=== PATIENT | male | born 1985 | race Caucasian/White ===

== ENCOUNTER 2019-08-17 11:10 | Inpatient (IN) | payer OTHER ==
[2019-08-17] MEDS ORDERED: Ondansetron 4 MG/2 ML SDV IVPUSH ONE (11:34)
[2019-08-17] MEDS ORDERED: Sodium Chloride 0.9% 1,000 ML IV ONE (11:34)
[2019-08-17] MEDS ORDERED: HYDROmorphone 1 MG/ML Syringe IVPUSH ONE ×2 (11:38→12:26)
--- NOTE | 2019-08-17 12:21 | EDM.PDOC ---
<Isabela Jenkins - Last Filed: 08/17/19 13:12> ED HPI GENERAL MEDICAL PROBLEM - General Chief Complaint: Abdominal Pain Stated Complaint: ABDOMINAL PAIN AND BACK PAIN AFTER COLONOSCOPY Time Seen by Provider: 08/17/19 11:20 Source of Information: Reports: Patient History Limitations: Reports: No Limitations - History of Present Illness INITIAL COMMENTS - FREE TEXT/NARRATIVE: 33 year old male with complaints of severe lower abdominal pain that started this morning. Pt states that he had a colonoscopy yesterday and everything was normal. Reports woke this morning with severe low back pain bilaterally and lower abdominal pain below the umbilicus. Pt did have two diarrhea bowel movements this morning, but this did not decrease his abdominal pain. Pt is not passing gas. Voided once this morning, and said it was extremely painful to void. Unable to clarify if he fully emptied his bladder. Bilateral Abdomen Pain Score (Numeric/FACES): 10 - Related Data Allergies Allergy/AdvReac Type Severity Reaction Status Date / Time No Known Allergies Allergy Verified 08/17/19 11:20 Home Meds: Home Meds . [No Known Home Meds] 08/17/19 [History] Past Medical History HEENT History: Reports: None Cardiovascular History: Reports: None Respiratory History: Reports: None Gastrointestinal History: Reports: GI Bleed Genitourinary History: Reports: None Neurological History: Reports: None Psychiatric History: Reports: None Endocrine/Metabolic History: Reports: None Hematologic History: Reports: None Immunologic History: Reports: None Oncologic (Cancer) History: Reports: None Dermatologic History: Reports: None - Infectious Disease History Infectious Disease History: Reports: None - Past Surgical History Head Surgeries/Procedures: Reports: None GI Surgical History: Reports: Colonoscopy Musculoskeletal Surgical History: Reports: Other (See Below) Other Musculoskeletal Surgeries/Procedures:: Wrist surgery as a kid. Social & Family History - Tobacco Use Smoking Status *Q: Never Smoker - Caffeine Use Caffeine Use: Reports: Coffee, Energy Drinks - Recreational Drug Use Recreational Drug Use: No ED ROS GENERAL - Review of Systems Constitutional: Reports: Chills HEENT: Reports: No Symptoms Respiratory: Reports: No Symptoms Cardiovascular: Reports: No Symptoms Endocrine: Reports: No Symptoms GI/Abdominal: Reports: Abdominal Pain, Diarrhea, Nausea : Reports: Dysuria, Pain Musculoskeletal: Reports: No Symptoms Skin: Reports: No Symptoms Neurological: Reports: No Symptoms Psychiatric: Reports: Anxiety Hematologic/Lymphatic: Reports: No Symptoms Immunologic: Reports: No Symptoms ED EXAM, GI/ABD - Physical Exam Exam: See Below Exam Limited By: No Limitations General Appearance: Alert, WD/WN, Moderate Distress Ears: Normal External Exam Nose: Normal Inspection Throat/Mouth: Normal Inspection, Normal Lips Head: Atraumatic, Normocephalic Neck: Normal Inspection Respiratory/Chest: No Respiratory Distress, Lungs Clear, Normal Breath Sounds, No Accessory Muscle Use, Chest Non-Tender Cardiovascular: Normal Peripheral Pulses, Regular Rate, Rhythm, No Edema, No Murmur GI/Abdominal Exam: Guarding, Tender, Abnormal Bowel Sounds (Male) Exam: Deferred Rectal (Males) Exam: Deferred Back Exam: Normal Inspection Extremities: Normal Inspection, No Pedal Edema Neurological: Alert, Oriented, Normal Cognition Psychiatric: Anxious Skin Exam: Warm, Dry, Intact, Normal Color, No Rash Lymphatic: No Adenopathy Course - Vital Signs Last Recorded V/S: Last Vital Signs Temp 96.9 F 08/17/19 11:17 Pulse 100 08/17/19 11:17 Resp 18 08/17/19 11:17 BP 106/95 H 08/17/19 11:17 Pulse Ox 100 08/17/19 11:17 - Orders/Labs/Meds Orders: Active Orders 24 hr Category Date Time Status Abdomen Pelvis w Cont [CT] Stat Exams 08/17/19 11:34 Taken Piperacillin/Tazobactam [Piperacil-Tazobact] 4.5 gm Med 08/17/19 14:45 Active Sodium Chloride 0.9% [Normal Saline] 100 ml IV Q8H Medication Orders Piperacillin Sod/Tazobactam (Sod 4.5 gm/ Sodium Chloride) 100 mls @ 25 mls/hr IV Q8H [facility] Labs: Laboratory Tests 08/17/19 08/17/19 08/17/19 Range/Units 11:55 11:55 14:00 WBC 14.05 H (4.23-9.07) K/mm3 RBC 5.29 (4.63-6.08) M/mm3 Hgb 15.6 (13.7-17.5) gm/dl Hct 43.1 (40.1-51.0) % MCV 81.5 (79.0-92.2) fl MCH 29.5 (25.7-32.2) pg MCHC 36.2 H (32.2-35.5) g/dl RDW Std Deviation 36.4 (35.1-43.9) fL Plt Count 251 (163-337) K/mm3 MPV 8.6 L (9.4-12.3) fl Neutrophils % (Manual) 86 H (40-60) % Band Neutrophils % 4 (0-10) % Lymphocytes % (Manual) 5 L (20-40) % Atypical Lymphs % 0 % Monocytes % (Manual) 4 (2-10) % Eosinophils % (Manual) 1 (0.8-7.0) % Basophils % (Manual) 0 L (0.2-1.2) Platelet Estimate Adequate RBC Morph Comment Normal Sodium 137 (136-145) mEq/L Potassium 3.7 (3.5-5.1) mEq/L Chloride 102 (98-107) mEq/L Carbon Dioxide 24 (21-32) mEq/L Anion Gap 14.7 (5-15) BUN 16 (7-18) mg/dL Creatinine 1.2 (0.7-1.3) mg/dL Est Cr Clr Drug Dosing 80.49 mL/min Estimated GFR (MDRD) > 60 (>60) mL/min BUN/Creatinine Ratio 13.3 L (14-18) Glucose 137 H (74-106) mg/dL Calcium 9.2 (8.5-10.1) mg/dL Total Bilirubin 1.3 H (0.2-1.0) mg/dL AST 23 (15-37) U/L ALT 56 (16-63) U/L Alkaline Phosphatase 57 (46-116) U/L Total Protein 7.7 (6.4-8.2) g/dl Albumin 4.5 (3.4-5.0) g/dl Globulin 3.2 gm/dL Albumin/Globulin Ratio 1.4 (1-2) Urine Color Yellow (Yellow) Urine Appearance Clear (Clear) Urine pH 7.5 (5.0-8.0) Ur Specific [place] 1.015 (1.005-1.030) Urine Protein Negative (Negative) Urine Glucose (UA) Negative (Negative) Urine Ketones 1+ H (Negative) Urine Occult Blood Negative (Negative) Urine Nitrite Negative (Negative) Urine Bilirubin Negative (Negative) Urine Urobilinogen 0.2 (0.2-1.0) Ur Leukocyte Esterase Negative (Negative) Urine RBC 0-5 (0-5) /hpf Urine WBC 0-5 (0-5) /hpf Ur Squamous Epith Cells 0-5 (0-5) /hpf Urine Bacteria Not seen (FEW) /hpf Urine Mucus Not seen (FEW) /hpf Meds: Medications Generic Name Dose Route Start Last Admin Trade Name Freq PRN Reason Stop Dose Admin Piperacillin Sod/Tazobactam 100 mls @ 25 mls/hr 08/17/19 14:45 Sod 4.5 gm/ Sodium Chloride IV Q8H [facility] Discontinued Medications Generic Name Dose Route Start Last Admin Trade Name Freq PRN Reason Stop Dose Admin Diatrizoate Meglum/Diatrizoate Sod 90 ml 08/17/19 12:52 08/17/19 13:23 Gastrografin 37% PO 08/17/19 12:53 90 ml ONETIME ONE Administration Hydromorphone HCl 1 mg 08/17/19 11:38 08/17/19 11:55 Dilaudid IVPUSH 08/17/19 11:39 1 mg ONETIME ONE Administration Hydromorphone HCl 1 mg 08/17/19 12:26 08/17/19 12:35 Dilaudid IVPUSH 08/17/19 12:27 1 mg ONETIME ONE Administration Hydromorphone HCl 0.5 mg 08/17/19 14:33 Dilaudid IVPUSH 08/17/19 14:34 ONETIME ONE Sodium Chloride 1,000 mls @ 999 mls/hr 08/17/19 11:34 08/17/19 11:55 Normal Saline IV 08/17/19 12:34 999 mls/hr ONETIME ONE Administration Iopamidol 100 ml 08/17/19 12:52 08/17/19 13:23 Isovue-300 (61%) IVPUSH 08/17/19 12:53 100 ml ONETIME ONE Administration Ondansetron HCl 4 mg 08/17/19 11:34 08/17/19 11:55 Zofran IVPUSH 08/17/19 11:35 4 mg ONETIME ONE Administration Sodium Chloride 10 ml 08/17/19 12:52 08/17/19 13:23 Saline Flush FLUSH 08/17/19 12:53 10 ml ONETIME ONE Administration - Re-Assessments/Exams Free Text/Narrative Re-Assessment/Exam: 08/17/19 1140 I ordered an IV NS@ 999x 1 liter, Dilaudid, Zofran, and a CT abdomen and pelvis , UA, CBC, and CMP Free Text/Narrative Re-Assessment/Exam: 08/17/19 1230 Severe lower abdominal pain has returned. I ordered a repeat dose of Dilaudid. Departure - Departure Disposition: Admitted As Inpatient 68 Clinical Impression: Perforated bowel - Discharge Information Referrals: Dell Washington Jr, MD [Primary Care Provider] - Forms: ED Department Discharge - My Orders Last 24 Hours: My Active Orders 08/17/19 14:45 Piperacillin/Tazobactam [Piperacil-Tazobact] 4.5 gm Sodium Chloride 0.9% [ Normal Saline] 100 ml IV Q8H - Assessment/Plan Last 24 Hours: My Active Orders 08/17/19 14:45 Piperacillin/Tazobactam [Piperacil-Tazobact] 4.5 gm Sodium Chloride 0.9% [ Normal Saline] 100 ml IV Q8H <Jesse Villarreal - Last Filed: 08/17/19 14:56> ED ROS GENERAL - Review of Systems Review Of Systems: See Below Course - Re-Assessments/Exams Free Text/Narrative Re-Assessment/Exam: 08/17/19 14:35 I examined the patient myself and I agree with Isabela's assessment and plan. I ordered an IV NS 1L bolus, zofran 4mg IV, dilaudid 1mg IV, labs, UA and a CT of his abdomen and pelvis. His WBC was elevated at 14.05. His glucose was elevated at 137. His total boli was slightly elevated at 1.3. His UA shows no UTI. His CT shows there are a few tiny bubbles of pneumoperitoneum. Etiologies include iatrogenic, diverticulitis, appendicitis, Crohn disease or Meckel's diverticulum. I ordered zosyn 4.5 gram IV and I have called Dr Rawls. He has more pain so I ordered more dilaudid. 08/17/19 14:53 Dr Rawls agreed to the admission. Departure - Departure Time of Disposition: 15:00 Condition: Fair - My Orders Last 24 Hours: My Active Orders 08/17/19 14:45 Piperacillin/Tazobactam [Piperacil-Tazobact] 4.5 gm Sodium Chloride 0.9% [ Normal Saline] 100 ml IV Q8H - Assessment/Plan Last 24 Hours: My Active Orders 08/17/19 14:45 Piperacillin/Tazobactam [Piperacil-Tazobact] 4.5 gm Sodium Chloride 0.9% [ Normal Saline] 100 ml IV Q8H
[2019-08-17] MEDS ORDERED: Sodium Chloride 0.9% 10 ML Syringe FLUSH ONE (12:52)
[2019-08-17] MEDS ORDERED: Diatrizoate Meglumine/Diatrizoate Sodium 37% 120 ML Bottle PO ONE (12:52)
[2019-08-17] MEDS ORDERED: Iopamidol 612 MG/ML 100 ML Bottle IVPUSH ONE (12:52)
[2019-08-17] MEDS ORDERED: HYDROmorphone 0.5 MG/0.5 ML Syringe IVPUSH ONE (14:33)
[2019-08-17] MEDS ORDERED: Piperacillin/Tazobactam 4.5 GM in Sodium Chloride 0.9% 100 ML IV SCH (14:45)
[2019-08-17] MEDS ORDERED: Sodium Chloride 0.9% 1,000 ML IV SCH (16:30)
[2019-08-17] MEDS: HYDROmorphone 0.5 MG/0.5 ML Syringe IVPUSH PRN ×3 (17:39→22:35)
--- NOTE | 2019-08-17 17:52 | PCM.HP.2 ---
H&P History of Present Illness - General Date of Service: 08/17/19 Admit Problem/Dx: Admission Diagnosis/Problem Admission Diagnosis/Problem Perforation of intestine Source of Information: Patient History Limitations: Reports: No Limitations - History of Present Illness Initial Comments - Free Text/Narative: Patient has a colonoscopy yesterday for hematochezia and diarrhea. Multiple biopsies were done and a superficial bleeding vein was cauterized. This morning the patient reports that he started having lower abdominal pain radiating to the back. The pain is crampy, severe at times, located in the lower abdomen, center greater than sides. no nausea or vomiting. The patient took his kinds to school but the pain progressed and he called my office and was told to go to the ED. In the ED VSS, CT a/p revealed inflamed sigmoid colon with a few specs of air in the mesocolon, no free fluid. Onset of Symptoms: Reports: Today, Sudden Duration of Symptoms: Reports: Hour(s):, Getting Worse Location: Reports: Abdomen (lower abdomen) Quality: Reports: Sharp Severity: Severe Improves with: Reports: Medication, Other Worsens with: Reports: Immobilization Context: Reports: Other (colonoscopy yesterday) Associated Symptoms: Reports: No Other Symptoms Bilateral Abdomen Pain Score (Numeric/FACES): 8 - Related Data Allergies/Adverse Reactions: Allergies Allergy/AdvReac Type Severity Reaction Status Date / Time No Known Allergies Allergy Verified 08/17/19 16:40 Home Medications: Home Meds . [No Known Home Meds] 08/17/19 [History] Past Medical History HEENT History: Reports: None Cardiovascular History: Reports: None Respiratory History: Reports: None Gastrointestinal History: Reports: Chronic Diarrhea, Other (See Below) Other Gastrointestinal History: pt. states he has been having bloody stools recently; pt. also states he always seems to have loose BMs which has gone on for a long time Genitourinary History: Reports: None Musculoskeletal History: Reports: None Neurological History: Reports: None Psychiatric History: Reports: None Endocrine/Metabolic History: Reports: None Hematologic History: Reports: None Immunologic History: Reports: None Oncologic (Cancer) History: Reports: None Dermatologic History: Reports: None - Infectious Disease History Infectious Disease History: Reports: None - Past Surgical History Head Surgeries/Procedures: Reports: None GI Surgical History: Reports: Colonoscopy Musculoskeletal Surgical History: Reports: Other (See Below) Other Musculoskeletal Surgeries/Procedures:: dislocated wrist at age 16, surgicall fixed Social & Family History - Family History Family Medical History: Noncontributory - Tobacco Use Smoking Status *Q: Never Smoker - Caffeine Use Caffeine Use: Reports: Coffee - Recreational Drug Use Recreational Drug Use: No H&P Review of Systems - Review of Systems: Review Of Systems: See Below General: Reports: No Symptoms HEENT: Reports: No Symptoms Pulmonary: Reports: No Symptoms Cardiovascular: Reports: No Symptoms Gastrointestinal: Reports: Abdominal Pain, Diarrhea, Hematochezia Genitourinary: Reports: No Symptoms Musculoskeletal: Reports: No Symptoms Skin: Reports: No Symptoms Psychiatric: Reports: No Symptoms Neurological: Reports: No Symptoms Hematologic/Lymphatic: Reports: No Symptoms Immunologic: Reports: No Symptoms Exam - Exam Exam: See Below - Vital Signs Vital Signs: Last Vital Signs Temp 99.7 F 08/17/19 15:41 Pulse 107 H 08/17/19 15:41 Resp 18 08/17/19 15:41 BP 139/80 08/17/19 15:41 Pulse Ox 94 L 08/17/19 15:41 Weight: 83.779 kg - Exam General: Alert, Oriented, Cooperative, Moderate Distress Lungs: Clear to Auscultation, Normal Respiratory Effort Cardiovascular: Regular Rate, Regular Rhythm GI/Abdominal Exam: Soft, No Organomegaly, Distended, Guarding, Tender - Patient Data Lab Results Last 24 hrs: Laboratory Results - last 24 hr 08/17/19 08/17/19 08/17/19 Range/Units 11:55 11:55 14:00 WBC 14.05 H (4.23-9.07) K/mm3 RBC 5.29 (4.63-6.08) M/mm3 Hgb 15.6 (13.7-17.5) gm/dl Hct 43.1 (40.1-51.0) % MCV 81.5 (79.0-92.2) fl MCH 29.5 (25.7-32.2) pg MCHC 36.2 H (32.2-35.5) g/dl RDW Std Deviation 36.4 (35.1-43.9) fL Plt Count 251 (163-337) K/mm3 MPV 8.6 L (9.4-12.3) fl Neutrophils % (Manual) 86 H (40-60) % Band Neutrophils % 4 (0-10) % Lymphocytes % (Manual) 5 L (20-40) % Atypical Lymphs % 0 % Monocytes % (Manual) 4 (2-10) % Eosinophils % (Manual) 1 (0.8-7.0) % Basophils % (Manual) 0 L (0.2-1.2) Platelet Estimate Adequate RBC Morph Comment Normal Sodium 137 (136-145) mEq/L Potassium 3.7 (3.5-5.1) mEq/L Chloride 102 (98-107) mEq/L Carbon Dioxide 24 (21-32) mEq/L Anion Gap 14.7 (5-15) BUN 16 (7-18) mg/dL Creatinine 1.2 (0.7-1.3) mg/dL Est Cr Clr Drug Dosing 80.49 mL/min Estimated GFR (MDRD) > 60 (>60) mL/min BUN/Creatinine Ratio 13.3 L (14-18) Glucose 137 H (74-106) mg/dL Calcium 9.2 (8.5-10.1) mg/dL Total Bilirubin 1.3 H (0.2-1.0) mg/dL AST 23 (15-37) U/L ALT 56 (16-63) U/L Alkaline Phosphatase 57 (46-116) U/L Total Protein 7.7 (6.4-8.2) g/dl Albumin 4.5 (3.4-5.0) g/dl Globulin 3.2 gm/dL Albumin/Globulin Ratio 1.4 (1-2) Urine Color Yellow (Yellow) Urine Appearance Clear (Clear) Urine pH 7.5 (5.0-8.0) Ur Specific [place] 1.015 (1.005-1.030) Urine Protein Negative (Negative) Urine Glucose (UA) Negative (Negative) Urine Ketones 1+ H (Negative) Urine Occult Blood Negative (Negative) Urine Nitrite Negative (Negative) Urine Bilirubin Negative (Negative) Urine Urobilinogen 0.2 (0.2-1.0) Ur Leukocyte Esterase Negative (Negative) Urine RBC 0-5 (0-5) /hpf Urine WBC 0-5 (0-5) /hpf Ur Squamous Epith Cells 0-5 (0-5) /hpf Urine Bacteria Not seen (FEW) /hpf Urine Mucus Not seen (FEW) /hpf Result Diagrams: 08/17/19 11:55 08/17/19 11:55 Problem List Initiated/Reviewed/Updated: No Orders Last 24hrs: Active Orders 24 hr Category Date Time Status Patient Status [ADT] Routine ADT 08/17/19 17:39 Active Bedrest Bathroom Privileges [RC] ASDIRECTED Care 08/17/19 16:19 Active NPO [Nothing Per Oral Diet] [DIET] Diet 08/17/19 Dinner Active Abdomen Pelvis w Cont [CT] Stat Exams 08/17/19 11:34 Taken BMP [BASIC METABOLIC PANEL,BMP] [CHEM] DAILY Lab 08/18/19 05:11 Ordered BMP [BASIC METABOLIC PANEL,BMP] [CHEM] DAILY Lab 08/19/19 05:11 Ordered BMP [BASIC METABOLIC PANEL,BMP] [CHEM] DAILY Lab 08/20/19 05:11 Ordered BMP [BASIC METABOLIC PANEL,BMP] [CHEM] DAILY Lab 08/21/19 05:11 Ordered CBC WITH AUTO DIFF [HEME] DAILY Lab 08/18/19 05:11 Ordered CBC WITH AUTO DIFF [HEME] DAILY Lab 08/19/19 05:11 Ordered CBC WITH AUTO DIFF [HEME] DAILY Lab 08/20/19 05:11 Ordered CBC WITH AUTO DIFF [HEME] DAILY Lab 08/21/19 05:11 Ordered HYDROmorphone [Dilaudid] Med 08/17/19 16:21 Active 0.5 mg IVPUSH Q2H PRN Ondansetron [Zofran] Med 08/17/19 16:20 Active 4 mg IVPUSH Q6H PRN Piperacillin/Tazobactam [Piperacil-Tazobact] 4.5 gm Med 08/17/19 21:00 Active Sodium Chloride 0.9% [Normal Saline] 100 ml IV Q6H Sodium Chloride 0.9% [Normal Saline] 1,000 ml Med 08/17/19 17:45 Active IV ASDIRECTED Pulse Oximetry Continuous Monitoring [OM.PC] Routine Oth 08/17/19 17:39 Active Code Status [Resuscitation Status] Routine Resus Stat 08/17/19 16:19 Ordered Medication Orders Hydromorphone HCl (Dilaudid) 0.5 mg IVPUSH Q2H PRN PRN Reason: Pain Last Admin: 08/17/19 17:39 Dose: 0.5 mg Piperacillin Sod/Tazobactam (Sod 4.5 gm/ Sodium Chloride) 100 mls @ 25 mls/hr IV Q6H [facility] Sodium Chloride (Normal Saline) 1,000 mls @ 125 mls/hr IV ASDIRECTED [facility] Ondansetron HCl (Zofran) 4 mg IVPUSH Q6H PRN PRN Reason: Nausea/Vomiting Assessment/Plan Comment:: Patient likely had iatrogenic colonic perforation. Per CT scan contamination is minimal, no intraperitoneal fluid. On exam he has guarding but abdomen is soft. We will attempt non-operative management with serial abdominal examinations, pain control, IV Zosyn and strict NPO. If patient symptoms worsen, we will proceed with surgical management. I discussed this with the patient and his . - Mortality Measure Prognosis:: Good (No significant comorbidities, patient expected to recover.)
[2019-08-17] MEDS: Piperacillin/Tazobactam 4.5 GM in Sodium Chloride 0.9% 100 ML IV SCH (20:34)
[2019-08-18] MEDS: HYDROmorphone 0.5 MG/0.5 ML Syringe IVPUSH PRN ×5 (00:34→11:04)
[2019-08-18] MEDS: Sodium Chloride 0.9% 1,000 ML IV SCH ×3 (01:11→17:01)
[2019-08-18] MEDS: Piperacillin/Tazobactam 4.5 GM in Sodium Chloride 0.9% 100 ML IV SCH ×4 (02:52→20:26)
--- NOTE | 2019-08-18 07:38 | CT ---
CT abdomen and pelvis Technique: Multiple axial sections were obtained from above the dome of the diaphragm inferiorly through the pubic symphysis. Intravenous and oral contrast was utilized. Delayed images were obtained through the bladder. Comparison: No prior abdominal imaging. Findings: Appendix is slightly prominent in size. Inflammatory change is noted which appears to be slightly distal to the appendix. Inflammatory change appears to be more surrounding a loop of bowel. Very minimal amount of air seen within the adjacent mesentery Visualized lung bases show nothing acute. Liver contains no focal abnormality. There is contrast seen within the distal esophagus compatible with reflux. Gallbladder contains no calcified gallstones. Spleen appears within normal limits. Kidneys show symmetric contrast enhancement without hydronephrosis or mass. Pancreas appears normal. Aorta shows no aneurysm. No retroperitoneal adenopathy is seen. No pelvic mass or adenopathy is seen. No free fluid is seen. Impression: 1. Slightly prominent size of the appendix. Inflammatory change is noted which appears to be slightly distal to the appendix and centered more around a loop of small bowel. Small amount of pneumoperitoneum also seen in this area. Differential includes unusual appendicitis, Meckel's diverticulum with inflammatory change or less likely Crohn's disease. 2. No additional abnormality is seen on CT study of the abdomen and pelvis. Diagnostic code #5 I agree with preliminary report from [facility], finalized on 08/17/19, 3:05 PM Central Time
--- NOTE | 2019-08-18 07:43 | PCM.SURGPN ---
- General Info Date of Service: 08/18/19 POD#: 2 (colonoscopy) Functional Status: Reports: Pain Controlled - Review of Systems General: Reports: No Symptoms HEENT: Reports: No Symptoms Pulmonary: Reports: No Symptoms Cardiovascular: Reports: No Symptoms Gastrointestinal: Reports: Abdominal Pain Genitourinary: Reports: No Symptoms Musculoskeletal: Reports: No Symptoms Skin: Reports: No Symptoms Neurological: Reports: No Symptoms - Patient Data Vitals - Most Recent: Last Vital Signs Temp 98.2 F 08/18/19 02:55 Pulse 96 08/18/19 02:55 Resp 16 08/18/19 02:55 BP 126/70 08/18/19 02:55 Pulse Ox 94 L 08/18/19 05:52 Weight - Most Recent: 84.232 kg I&O - Last 24 Hours: Intake & Output 08/17/19 08/18/19 08/18/19 22:59 06:59 14:59 Intake Total 1688 Balance 1688 Lab Results Last 24 Hrs: Laboratory Results - last 24 hr 08/17/19 08/17/19 08/17/19 Range/Units 11:55 11:55 14:00 WBC 14.05 H (4.23-9.07) K/mm3 RBC 5.29 (4.63-6.08) M/mm3 Hgb 15.6 (13.7-17.5) gm/dl Hct 43.1 (40.1-51.0) % MCV 81.5 (79.0-92.2) fl MCH 29.5 (25.7-32.2) pg MCHC 36.2 H (32.2-35.5) g/dl RDW Std Deviation 36.4 (35.1-43.9) fL Plt Count 251 (163-337) K/mm3 MPV 8.6 L (9.4-12.3) fl Neut % (Auto) (34.0-67.9) % Lymph % (Auto) (21.8-53.1) % [place] % (Auto) (5.3-12.2) % Eos % (Auto) (0.8-7.0) Baso % (Auto) (0.1-1.2) % Neut # (Auto) (1.78-5.38) K/mm3 Lymph # (Auto) (1.32-3.57) K/mm3 [place] # (Auto) (0.30-0.82) K/mm3 Eos # (Auto) (0.04-0.54) K/mm3 Baso # (Auto) (0.01-0.08) K/mm3 Neutrophils % (Manual) 86 H (40-60) % Band Neutrophils % 4 (0-10) % Lymphocytes % (Manual) 5 L (20-40) % Atypical Lymphs % 0 % Monocytes % (Manual) 4 (2-10) % Eosinophils % (Manual) 1 (0.8-7.0) % Basophils % (Manual) 0 L (0.2-1.2) Manual Slide Review Platelet Estimate Adequate RBC Morph Comment Normal Sodium 137 (136-145) mEq/L Potassium 3.7 (3.5-5.1) mEq/L Chloride 102 (98-107) mEq/L Carbon Dioxide 24 (21-32) mEq/L Anion Gap 14.7 (5-15) BUN 16 (7-18) mg/dL Creatinine 1.2 (0.7-1.3) mg/dL Est Cr Clr Drug Dosing 80.49 mL/min Estimated GFR (MDRD) > 60 (>60) mL/min BUN/Creatinine Ratio 13.3 L (14-18) Glucose 137 H (74-106) mg/dL Calcium 9.2 (8.5-10.1) mg/dL Total Bilirubin 1.3 H (0.2-1.0) mg/dL AST 23 (15-37) U/L ALT 56 (16-63) U/L Alkaline Phosphatase 57 (46-116) U/L Total Protein 7.7 (6.4-8.2) g/dl Albumin 4.5 (3.4-5.0) g/dl Globulin 3.2 gm/dL Albumin/Globulin Ratio 1.4 (1-2) Urine Color Yellow (Yellow) Urine Appearance Clear (Clear) Urine pH 7.5 (5.0-8.0) Ur Specific [place] 1.015 (1.005-1.030) Urine Protein Negative (Negative) Urine Glucose (UA) Negative (Negative) Urine Ketones 1+ H (Negative) Urine Occult Blood Negative (Negative) Urine Nitrite Negative (Negative) Urine Bilirubin Negative (Negative) Urine Urobilinogen 0.2 (0.2-1.0) Ur Leukocyte Esterase Negative (Negative) Urine RBC 0-5 (0-5) /hpf Urine WBC 0-5 (0-5) /hpf Ur Squamous Epith Cells 0-5 (0-5) /hpf Urine Bacteria Not seen (FEW) /hpf Urine Mucus Not seen (FEW) /hpf 08/18/19 08/18/19 Range/Units 05:20 05:20 WBC 10.93 H (4.23-9.07) K/mm3 RBC 4.66 (4.63-6.08) M/mm3 Hgb 13.7 D (13.7-17.5) gm/dl Hct 39.4 L (40.1-51.0) % MCV 84.5 D (79.0-92.2) fl MCH 29.4 (25.7-32.2) pg MCHC 34.8 (32.2-35.5) g/dl RDW Std Deviation 37.9 (35.1-43.9) fL Plt Count 193 (163-337) K/mm3 MPV 8.8 L (9.4-12.3) fl Neut % (Auto) 85.9 H (34.0-67.9) % Lymph % (Auto) 8.1 L (21.8-53.1) % [place] % (Auto) 5.4 (5.3-12.2) % Eos % (Auto) 0.3 L (0.8-7.0) Baso % (Auto) 0.1 (0.1-1.2) % Neut # (Auto) 9.40 H (1.78-5.38) K/mm3 Lymph # (Auto) 0.88 L (1.32-3.57) K/mm3 [place] # (Auto) 0.59 (0.30-0.82) K/mm3 Eos # (Auto) 0.03 L (0.04-0.54) K/mm3 Baso # (Auto) 0.01 (0.01-0.08) K/mm3 Neutrophils % (Manual) (40-60) % Band Neutrophils % (0-10) % Lymphocytes % (Manual) (20-40) % Atypical Lymphs % % Monocytes % (Manual) (2-10) % Eosinophils % (Manual) (0.8-7.0) % Basophils % (Manual) (0.2-1.2) Manual Slide Review Normal smear Platelet Estimate RBC Morph Comment Sodium 139 (136-145) mEq/L Potassium 3.8 (3.5-5.1) mEq/L Chloride 105 (98-107) mEq/L Carbon Dioxide 26 (21-32) mEq/L Anion Gap 11.8 (5-15) BUN 12 (7-18) mg/dL Creatinine 1.3 (0.7-1.3) mg/dL Est Cr Clr Drug Dosing 74.30 mL/min Estimated GFR (MDRD) > 60 (>60) mL/min BUN/Creatinine Ratio 9.2 L (14-18) Glucose 117 H (74-106) mg/dL Calcium 8.2 L (8.5-10.1) mg/dL Total Bilirubin (0.2-1.0) mg/dL AST (15-37) U/L ALT (16-63) U/L Alkaline Phosphatase (46-116) U/L Total Protein (6.4-8.2) g/dl Albumin (3.4-5.0) g/dl Globulin gm/dL Albumin/Globulin Ratio (1-2) Urine Color (Yellow) Urine Appearance (Clear) Urine pH (5.0-8.0) Ur Specific [place] (1.005-1.030) Urine Protein (Negative) Urine Glucose (UA) (Negative) Urine Ketones (Negative) Urine Occult Blood (Negative) Urine Nitrite (Negative) Urine Bilirubin (Negative) Urine Urobilinogen (0.2-1.0) Ur Leukocyte Esterase (Negative) Urine RBC (0-5) /hpf Urine WBC (0-5) /hpf Ur Squamous Epith Cells (0-5) /hpf Urine Bacteria (FEW) /hpf Urine Mucus (FEW) /hpf Med Orders - Current: Current Medications Hydromorphone HCl (Dilaudid) 0.5 mg IVPUSH Q2H PRN PRN Reason: Pain Last Admin: 08/18/19 05:26 Dose: 0.5 mg Piperacillin Sod/Tazobactam (Sod 4.5 gm/ Sodium Chloride) 100 mls @ 25 mls/hr IV Q6H [facility] Last Admin: 08/18/19 02:52 Dose: 25 mls/hr Sodium Chloride (Normal Saline) 1,000 mls @ 125 mls/hr IV ASDIRECTED [facility] Last Admin: 08/18/19 01:11 Dose: 125 mls/hr Ondansetron HCl (Zofran) 4 mg IVPUSH Q6H PRN PRN Reason: Nausea/Vomiting Discontinued Medications Diatrizoate Meglum/Diatrizoate Sod (Gastrografin 37%) 90 ml PO ONETIME ONE Stop: 08/17/19 12:53 Last Admin: 08/17/19 13:23 Dose: 90 ml Hydromorphone HCl (Dilaudid) 1 mg IVPUSH ONETIME ONE Stop: 08/17/19 11:39 Last Admin: 08/17/19 11:55 Dose: 1 mg Hydromorphone HCl (Dilaudid) 1 mg IVPUSH ONETIME ONE Stop: 08/17/19 12:27 Last Admin: 08/17/19 12:35 Dose: 1 mg Hydromorphone HCl (Dilaudid) 0.5 mg IVPUSH ONETIME ONE Stop: 08/17/19 14:34 Last Admin: 08/17/19 14:58 Dose: 0.5 mg Sodium Chloride (Normal Saline) 1,000 mls @ 999 mls/hr IV ONETIME ONE Stop: 08/17/19 12:34 Last Admin: 08/17/19 11:55 Dose: 999 mls/hr Piperacillin Sod/Tazobactam (Sod 4.5 gm/ Sodium Chloride) 100 mls @ 200 mls/hr IV Q8H [facility] Last Admin: 08/17/19 15:00 Dose: 25 mls/hr Sodium Chloride (Normal Saline) 1,000 mls @ 100 mls/hr IV ASDIRECTED [facility] Last Admin: 08/17/19 17:31 Dose: 100 mls/hr Iopamidol (Isovue-300 (61%)) 100 ml IVPUSH ONETIME ONE Stop: 08/17/19 12:53 Last Admin: 08/17/19 13:23 Dose: 100 ml Ondansetron HCl (Zofran) 4 mg IVPUSH ONETIME ONE Stop: 08/17/19 11:35 Last Admin: 08/17/19 11:55 Dose: 4 mg Sodium Chloride (Saline Flush) 10 ml FLUSH ONETIME ONE Stop: 08/17/19 12:53 Last Admin: 08/17/19 13:23 Dose: 10 ml - Exam Quality Assessment: Supplemental Oxygen General: Alert, Oriented, Cooperative, Mild Distress GI/Abdominal Exam: Soft, Distended (moderately), Tender, Other (not guarding) Skin: Warm, Dry - Problem List Review Problem List Initiated/Reviewed/Updated: No - My Orders Last 24 Hours: Active Orders 24 hr Category Date Time Status Patient Status [ADT] Routine ADT 08/17/19 17:39 Active Bedrest Bathroom Privileges [RC] BID Care 08/17/19 16:19 Active NPO [Nothing Per Oral Diet] [DIET] Diet 08/17/19 Dinner Active Abdomen Pelvis w Cont [CT] Stat Exams 08/17/19 11:34 Taken BMP [BASIC METABOLIC PANEL,BMP] [CHEM] DAILY Lab 08/19/19 05:11 Ordered BMP [BASIC METABOLIC PANEL,BMP] [CHEM] DAILY Lab 08/20/19 05:11 Ordered BMP [BASIC METABOLIC PANEL,BMP] [CHEM] DAILY Lab 08/21/19 05:11 Ordered CBC WITH AUTO DIFF [HEME] DAILY Lab 08/19/19 05:11 Ordered CBC WITH AUTO DIFF [HEME] DAILY Lab 08/20/19 05:11 Ordered CBC WITH AUTO DIFF [HEME] DAILY Lab 08/21/19 05:11 Ordered HYDROmorphone [Dilaudid] Med 08/17/19 16:21 Active 0.5 mg IVPUSH Q2H PRN Ondansetron [Zofran] Med 08/17/19 16:20 Active 4 mg IVPUSH Q6H PRN Piperacillin/Tazobactam [Piperacil-Tazobact] 4.5 gm Med 08/17/19 21:00 Active Sodium Chloride 0.9% [Normal Saline] 100 ml IV Q6H Sodium Chloride 0.9% [Normal Saline] 1,000 ml Med 08/17/19 17:45 Active IV ASDIRECTED Pulse Oximetry Continuous Monitoring [OM.PC] Routine Oth 08/17/19 17:39 Active Code Status [Resuscitation Status] Routine Resus Stat 08/17/19 16:19 Ordered Medication Orders Hydromorphone HCl (Dilaudid) 0.5 mg IVPUSH Q2H PRN PRN Reason: Pain Last Admin: 08/18/19 05:26 Dose: 0.5 mg Admin: 08/18/19 02:52 Dose: 0.5 mg Admin: 08/18/19 00:34 Dose: 0.5 mg Admin: 08/17/19 22:35 Dose: 0.5 mg Admin: 08/17/19 20:34 Dose: 0.5 mg Admin: 08/17/19 17:39 Dose: 0.5 mg Piperacillin Sod/Tazobactam (Sod 4.5 gm/ Sodium Chloride) 100 mls @ 25 mls/hr IV Q6H [facility] Last Admin: 08/18/19 02:52 Dose: 25 mls/hr Infusion: 08/18/19 00:34 Dose: 25 mls/hr Admin: 08/17/19 20:34 Dose: 25 mls/hr Sodium Chloride (Normal Saline) 1,000 mls @ 125 mls/hr IV ASDIRECTED [facility] Last Admin: 08/18/19 01:11 Dose: 125 mls/hr Ondansetron HCl (Zofran) 4 mg IVPUSH Q6H PRN PRN Reason: Nausea/Vomiting - Assessment Assessment (Free Text/Narrative):: Has improved, pain seems slightly better on exam, no guarding as much. - Plan Plan (Free Text/Narrative):: Ok for mouth swabs Continue NPO, IVF, IV Abx
[2019-08-18] MEDS: Morphine 2 MG/ML Syringe IVPUSH PRN (15:07)
[2019-08-18] MEDS: Ketorolac 15 MG/ML SDV IVPUSH PRN ×2 (17:51→23:53)
[2019-08-19] MEDS: Sodium Chloride 0.9% 1,000 ML IV SCH ×3 (00:59→17:22)
[2019-08-19] MEDS: Piperacillin/Tazobactam 4.5 GM in Sodium Chloride 0.9% 100 ML IV SCH ×4 (03:33→20:58)
[2019-08-19] MEDS: Ondansetron 4 MG/2 ML SDV IVPUSH PRN ×3 (04:23→20:56)
[2019-08-19] MEDS: Morphine 2 MG/ML Syringe IVPUSH PRN ×3 (06:01→20:56)
--- NOTE | 2019-08-19 08:25 | PCM.SURGPN ---
- General Info Date of Service: 08/19/19 Date of Surgery/Procedure: 08/16/19 POD#: 2 Functional Status: Reports: Pain Controlled - Review of Systems General: Reports: No Symptoms HEENT: Reports: No Symptoms Pulmonary: Reports: No Symptoms Cardiovascular: Reports: No Symptoms Gastrointestinal: Reports: Abdominal Pain Genitourinary: Reports: No Symptoms Musculoskeletal: Reports: No Symptoms Skin: Reports: No Symptoms Neurological: Reports: No Symptoms Psychiatric: Reports: No Symptoms - Patient Data Vitals - Most Recent: Last Vital Signs Temp 97.2 F 08/19/19 03:43 Pulse 97 08/19/19 03:43 Resp 16 08/19/19 03:43 BP 128/73 08/19/19 03:43 Pulse Ox 96 08/19/19 03:43 Weight - Most Recent: 84.504 kg I&O - Last 24 Hours: Intake & Output 08/18/19 08/19/19 08/19/19 22:59 06:59 14:59 Intake Total 1728 1575 Balance 1728 1575 Lab Results Last 24 Hrs: Laboratory Results - last 24 hr 08/19/19 08/19/19 Range/Units 05:20 05:20 WBC 9.08 H (4.23-9.07) K/mm3 RBC 4.45 L (4.63-6.08) M/mm3 Hgb 13.0 L (13.7-17.5) gm/dl Hct 37.2 L (40.1-51.0) % MCV 83.6 (79.0-92.2) fl MCH 29.2 (25.7-32.2) pg MCHC 34.9 (32.2-35.5) g/dl RDW Std Deviation 36.9 (35.1-43.9) fL Plt Count 182 (163-337) K/mm3 MPV 8.8 L (9.4-12.3) fl Neut % (Auto) 84.6 H (34.0-67.9) % Lymph % (Auto) 7.3 L (21.8-53.1) % [place] % (Auto) 6.7 (5.3-12.2) % Eos % (Auto) 1.2 (0.8-7.0) Baso % (Auto) 0.1 (0.1-1.2) % Neut # (Auto) 7.68 H (1.78-5.38) K/mm3 Lymph # (Auto) 0.66 L (1.32-3.57) K/mm3 [place] # (Auto) 0.61 (0.30-0.82) K/mm3 Eos # (Auto) 0.11 (0.04-0.54) K/mm3 Baso # (Auto) 0.01 (0.01-0.08) K/mm3 Manual Slide Review Normal smear Sodium 140 (136-145) mEq/L Potassium 3.6 (3.5-5.1) mEq/L Chloride 106 (98-107) mEq/L Carbon Dioxide 22 (21-32) mEq/L Anion Gap 15.6 H (5-15) BUN 12 (7-18) mg/dL Creatinine 1.0 (0.7-1.3) mg/dL Est Cr Clr Drug Dosing 96.59 mL/min Estimated GFR (MDRD) > 60 (>60) mL/min BUN/Creatinine Ratio 12.0 L (14-18) Glucose 108 H (74-106) mg/dL Calcium 8.2 L (8.5-10.1) mg/dL Med Orders - Current: Current Medications Piperacillin Sod/Tazobactam (Sod 4.5 gm/ Sodium Chloride) 100 mls @ 25 mls/hr IV Q6H [facility] Last Admin: 08/19/19 03:33 Dose: 25 mls/hr Sodium Chloride (Normal Saline) 1,000 mls @ 125 mls/hr IV ASDIRECTED [facility] Last Admin: 08/19/19 00:59 Dose: 125 mls/hr Ketorolac Tromethamine (Toradol) 15 mg IVPUSH Q6H PRN PRN Reason: Pain Last Admin: 08/18/19 23:53 Dose: 15 mg Morphine Sulfate (Morphine) 2 mg IVPUSH Q4H PRN PRN Reason: Pain Last Admin: 08/19/19 06:01 Dose: 2 mg Ondansetron HCl (Zofran) 4 mg IVPUSH Q6H PRN PRN Reason: Nausea/Vomiting Last Admin: 08/19/19 04:23 Dose: 4 mg Discontinued Medications Diatrizoate Meglum/Diatrizoate Sod (Gastrografin 37%) 90 ml PO ONETIME ONE Stop: 10/23/19 12:53 Last Admin: 08/17/19 13:23 Dose: 90 ml Hydromorphone HCl (Dilaudid) 1 mg IVPUSH ONETIME ONE Stop: 08/17/19 11:39 Last Admin: 08/17/19 11:55 Dose: 1 mg Hydromorphone HCl (Dilaudid) 1 mg IVPUSH ONETIME ONE Stop: 08/17/19 12:27 Last Admin: 08/17/19 12:35 Dose: 1 mg Hydromorphone HCl (Dilaudid) 0.5 mg IVPUSH ONETIME ONE Stop: 08/17/19 14:34 Last Admin: 08/17/19 14:58 Dose: 0.5 mg Hydromorphone HCl (Dilaudid) 0.5 mg IVPUSH Q2H PRN PRN Reason: Pain Last Admin: 08/18/19 11:04 Dose: 0.5 mg Sodium Chloride (Normal Saline) 1,000 mls @ 999 mls/hr IV ONETIME ONE Stop: 08/17/19 12:34 Last Admin: 08/17/19 11:55 Dose: 999 mls/hr Piperacillin Sod/Tazobactam (Sod 4.5 gm/ Sodium Chloride) 100 mls @ 200 mls/hr IV Q8H [facility] Last Admin: 08/17/19 15:00 Dose: 25 mls/hr Sodium Chloride (Normal Saline) 1,000 mls @ 100 mls/hr IV ASDIRECTED [facility] Last Admin: 08/17/19 17:31 Dose: 100 mls/hr Iopamidol (Isovue-300 (61%)) 100 ml IVPUSH ONETIME ONE Stop: 08/17/19 12:53 Last Admin: 08/17/19 13:23 Dose: 100 ml Ondansetron HCl (Zofran) 4 mg IVPUSH ONETIME ONE Stop: 08/17/19 11:35 Last Admin: 08/17/19 11:55 Dose: 4 mg Sodium Chloride (Saline Flush) 10 ml FLUSH ONETIME ONE Stop: 08/17/19 12:53 Last Admin: 08/17/19 13:23 Dose: 10 ml - Exam General: Alert, Oriented, Cooperative, No Acute Distress Lungs: Clear to Auscultation, Normal Respiratory Effort GI/Abdominal Exam: Soft, No Organomegaly, No Distention, Tender (lower abdomen) - Problem List Review Problem List Initiated/Reviewed/Updated: No - My Orders Last 24 Hours: Active Orders 24 hr Category Date Time Status Up ad Rebecca [RC] ASDIRECTED Care 08/18/19 14:16 Active BMP [BASIC METABOLIC PANEL,BMP] [CHEM] DAILY Lab 08/20/19 05:11 Ordered BMP [BASIC METABOLIC PANEL,BMP] [CHEM] DAILY Lab 08/21/19 05:11 Ordered CBC WITH AUTO DIFF [HEME] DAILY Lab 08/20/19 05:11 Ordered CBC WITH AUTO DIFF [HEME] DAILY Lab 08/21/19 05:11 Ordered Ketorolac [Toradol] Med 08/18/19 17:41 Active 15 mg IVPUSH Q6H PRN Morphine Med 08/18/19 14:15 Active 2 mg IVPUSH Q4H PRN K Pad [Heat Therapy] [OM.PC] Routine Oth 08/19/19 06:09 Ordered Medication Orders Piperacillin Sod/Tazobactam (Sod 4.5 gm/ Sodium Chloride) 100 mls @ 25 mls/hr IV Q6H [facility] Last Admin: 08/19/19 03:33 Dose: 25 mls/hr Infusion: 08/19/19 00:26 Dose: 25 mls/hr Admin: 08/18/19 20:26 Dose: 25 mls/hr Infusion: 08/18/19 19:08 Dose: 25 mls/hr Admin: 08/18/19 15:08 Dose: 25 mls/hr Infusion: 08/18/19 13:08 Dose: 25 mls/hr Admin: 08/18/19 09:08 Dose: 25 mls/hr Infusion: 08/18/19 06:52 Dose: 25 mls/hr Admin: 08/18/19 02:52 Dose: 25 mls/hr Infusion: 08/18/19 00:34 Dose: 25 mls/hr Admin: 08/17/19 20:34 Dose: 25 mls/hr Sodium Chloride (Normal Saline) 1,000 mls @ 125 mls/hr IV ASDIRECTED [facility] Last Admin: 08/19/19 00:59 Dose: 125 mls/hr Infusion: 08/19/19 00:59 Dose: 125 mls/hr Admin: 08/18/19 17:01 Dose: 125 mls/hr Infusion: 08/18/19 17:01 Dose: 125 mls/hr Admin: 08/18/19 09:08 Dose: 125 mls/hr Infusion: 08/18/19 09:08 Dose: 125 mls/hr Admin: 08/18/19 01:11 Dose: 125 mls/hr Ketorolac Tromethamine (Toradol) 15 mg IVPUSH Q6H PRN PRN Reason: Pain Last Admin: 08/18/19 23:53 Dose: 15 mg Admin: 08/18/19 17:51 Dose: 15 mg Morphine Sulfate (Morphine) 2 mg IVPUSH Q4H PRN PRN Reason: Pain Last Admin: 08/19/19 06:01 Dose: 2 mg Admin: 08/18/19 15:07 Dose: 2 mg Ondansetron HCl (Zofran) 4 mg IVPUSH Q6H PRN PRN Reason: Nausea/Vomiting Last Admin: 08/19/19 04:23 Dose: 4 mg - Plan Plan (Free Text/Narrative):: He has BMs, no nausea or vomiting. Pain is better. No guarding any more. - start CLD this afternoon - continue IV abx - ambulate as tolerated - Anticipated discharge over the weekend.
[2019-08-19] MEDS: Ketorolac 15 MG/ML SDV IVPUSH PRN (17:13)
[2019-08-19] MEDS: Aluminum Hydroxide/Magnesium Hydroxide/Simethicone Susp 30 ML Cup PO PRN (18:15)
[2019-08-20] MEDS: Sodium Chloride 0.9% 1,000 ML IV SCH ×3 (01:10→17:54)
[2019-08-20] MEDS: Piperacillin/Tazobactam 4.5 GM in Sodium Chloride 0.9% 100 ML IV SCH ×3 (03:41→14:21)
[2019-08-20] MEDS: Ketorolac 15 MG/ML SDV IVPUSH PRN ×2 (05:20→21:44)
--- NOTE | 2019-08-20 09:14 | PCM.SURGPN ---
- General Info Date of Service: 08/20/19 POD#: 4 Admission Diagnosis/Problem: Colonoscopy Functional Status: Reports: Pain Controlled, Ambulating Pain Score: 4 - Review of Systems General: Reports: No Symptoms HEENT: Reports: No Symptoms Pulmonary: Reports: No Symptoms Cardiovascular: Reports: No Symptoms Gastrointestinal: Reports: Abdominal Pain, Diarrhea, Flatus, Vomiting Genitourinary: Reports: No Symptoms Musculoskeletal: Reports: No Symptoms Skin: Reports: No Symptoms - Patient Data Vitals - Most Recent: Last Vital Signs Temp 99.0 F 08/19/19 23:28 Pulse 104 H 08/19/19 23:28 Resp 12 08/19/19 23:28 BP 140/86 08/19/19 23:28 Pulse Ox 95 08/19/19 23:28 Weight - Most Recent: 84.504 kg I&O - Last 24 Hours: Intake & Output 08/19/19 08/20/19 08/20/19 22:59 06:59 14:59 Intake Total 1885 1161 Output Total 770 Balance 1115 1161 Lab Results Last 24 Hrs: Laboratory Results - last 24 hr 08/20/19 08/20/19 Range/Units 05:35 05:35 WBC 6.84 (4.23-9.07) K/mm3 RBC 4.14 L (4.63-6.08) M/mm3 Hgb 12.0 L (13.7-17.5) gm/dl Hct 34.9 L (40.1-51.0) % MCV 84.3 (79.0-92.2) fl MCH 29.0 (25.7-32.2) pg MCHC 34.4 (32.2-35.5) g/dl RDW Std Deviation 38.0 (35.1-43.9) fL Plt Count 226 (163-337) K/mm3 MPV 8.8 L (9.4-12.3) fl Neut % (Auto) 78.5 H (34.0-67.9) % Lymph % (Auto) 9.4 L (21.8-53.1) % [place] % (Auto) 9.5 (5.3-12.2) % Eos % (Auto) 2.3 (0.8-7.0) Baso % (Auto) 0.3 (0.1-1.2) % Neut # (Auto) 5.37 (1.78-5.38) K/mm3 Lymph # (Auto) 0.64 L (1.32-3.57) K/mm3 [place] # (Auto) 0.65 (0.30-0.82) K/mm3 Eos # (Auto) 0.16 (0.04-0.54) K/mm3 Baso # (Auto) 0.02 (0.01-0.08) K/mm3 Manual Slide Review Abnormal smear Sodium 142 (136-145) mEq/L Potassium 3.6 (3.5-5.1) mEq/L Chloride 108 H (98-107) mEq/L Carbon Dioxide 23 (21-32) mEq/L Anion Gap 14.6 (5-15) BUN 12 (7-18) mg/dL Creatinine 1.0 (0.7-1.3) mg/dL Est Cr Clr Drug Dosing 96.59 mL/min Estimated GFR (MDRD) > 60 (>60) mL/min BUN/Creatinine Ratio 12.0 L (14-18) Glucose 109 H (74-106) mg/dL Calcium 8.2 L (8.5-10.1) mg/dL Med Orders - Current: Current Medications Al Hydroxide/Mg Hydroxide (Mag-Al Plus) 30 ml PO Q4H PRN PRN Reason: Heartburn Last Admin: 08/19/19 18:15 Dose: 30 ml Piperacillin Sod/Tazobactam (Sod 4.5 gm/ Sodium Chloride) 100 mls @ 25 mls/hr IV Q6H [facility] Last Admin: 08/20/19 08:38 Dose: 25 mls/hr Sodium Chloride (Normal Saline) 1,000 mls @ 125 mls/hr IV ASDIRECTED [facility] Last Admin: 08/20/19 08:38 Dose: 125 mls/hr Ketorolac Tromethamine (Toradol) 15 mg IVPUSH Q6H PRN PRN Reason: Pain Last Admin: 08/20/19 05:20 Dose: 15 mg Morphine Sulfate (Morphine) 2 mg IVPUSH Q4H PRN PRN Reason: Pain Last Admin: 08/19/19 20:56 Dose: 2 mg Ondansetron HCl (Zofran) 4 mg IVPUSH Q6H PRN PRN Reason: Nausea/Vomiting Last Admin: 08/19/19 20:56 Dose: 4 mg Discontinued Medications Diatrizoate Meglum/Diatrizoate Sod (Gastrografin 37%) 90 ml PO ONETIME ONE Stop: 08/17/19 12:53 Last Admin: 08/17/19 13:23 Dose: 90 ml Hydromorphone HCl (Dilaudid) 1 mg IVPUSH ONETIME ONE Stop: 08/17/19 11:39 Last Admin: 08/17/19 11:55 Dose: 1 mg Hydromorphone HCl (Dilaudid) 1 mg IVPUSH ONETIME ONE Stop: 08/17/19 12:27 Last Admin: 08/17/19 12:35 Dose: 1 mg Hydromorphone HCl (Dilaudid) 0.5 mg IVPUSH ONETIME ONE Stop: 08/17/19 14:34 Last Admin: 08/17/19 14:58 Dose: 0.5 mg Hydromorphone HCl (Dilaudid) 0.5 mg IVPUSH Q2H PRN PRN Reason: Pain Last Admin: 08/18/19 11:04 Dose: 0.5 mg Sodium Chloride (Normal Saline) 1,000 mls @ 999 mls/hr IV ONETIME ONE Stop: 08/17/19 12:34 Last Admin: 08/17/19 11:55 Dose: 999 mls/hr Piperacillin Sod/Tazobactam (Sod 4.5 gm/ Sodium Chloride) 100 mls @ 200 mls/hr IV Q8H [facility] Last Admin: 08/17/19 15:00 Dose: 25 mls/hr Sodium Chloride (Normal Saline) 1,000 mls @ 100 mls/hr IV ASDIRECTED [facility] Last Admin: 08/17/19 17:31 Dose: 100 mls/hr Iopamidol (Isovue-300 (61%)) 100 ml IVPUSH ONETIME ONE Stop: 08/17/19 12:53 Last Admin: 08/17/19 13:23 Dose: 100 ml Ondansetron HCl (Zofran) 4 mg IVPUSH ONETIME ONE Stop: 08/17/19 11:35 Last Admin: 08/17/19 11:55 Dose: 4 mg Sodium Chloride (Saline Flush) 10 ml FLUSH ONETIME ONE Stop: 08/17/19 12:53 Last Admin: 08/17/19 13:23 Dose: 10 ml - Exam Wound/Incisions: Healing Well General: Alert, Oriented, Cooperative, No Acute Distress GI/Abdominal Exam: Soft, Distended, Tender (mildly) - Problem List Review Problem List Initiated/Reviewed/Updated: No - My Orders Last 24 Hours: Active Orders 24 hr Category Date Time Status May Shower [RC] ASDIRECTED Care 08/19/19 11:53 Active NPO Now [Nothing per Oral Now Diet] [DIET] Diet 08/20/19 Breakfast Active Abdomen Pelvis w Cont [CT] Routine Exams 08/20/19 08:48 Ordered BMP [BASIC METABOLIC PANEL,BMP] [CHEM] DAILY Lab 08/21/19 05:11 Ordered C DIFFICILE BY PCR W/NAP1 [MOLEC] Routine Lab 08/20/19 08:42 Ordered CBC WITH AUTO DIFF [HEME] DAILY Lab 08/21/19 05:11 Ordered Alum Hydrox/Mag Hydrox/Simeth [Mag-Al Plus] Med 08/19/19 17:44 Active 30 ml PO Q4H PRN Isolation [COMM] Stat Oth 08/20/19 08:43 Ordered Medication Orders Al Hydroxide/Mg Hydroxide (Mag-Al Plus) 30 ml PO Q4H PRN PRN Reason: Heartburn Last Admin: 08/19/19 18:15 Dose: 30 ml Piperacillin Sod/Tazobactam (Sod 4.5 gm/ Sodium Chloride) 100 mls @ 25 mls/hr IV Q6H [facility] Last Admin: 08/20/19 08:38 Dose: 25 mls/hr Infusion: 08/20/19 07:41 Dose: 25 mls/hr Admin: 08/20/19 03:41 Dose: 25 mls/hr Infusion: 08/20/19 00:58 Dose: 25 mls/hr Admin: 08/19/19 20:58 Dose: 25 mls/hr Infusion: 08/19/19 18:15 Dose: 25 mls/hr Admin: 08/19/19 14:15 Dose: 25 mls/hr Infusion: 08/19/19 13:26 Dose: 25 mls/hr Admin: 08/19/19 09:26 Dose: 25 mls/hr Infusion: 08/19/19 07:33 Dose: 25 mls/hr Admin: 08/19/19 03:33 Dose: 25 mls/hr Infusion: 08/19/19 00:26 Dose: 25 mls/hr Admin: 08/18/19 20:26 Dose: 25 mls/hr Infusion: 08/18/19 19:08 Dose: 25 mls/hr Admin: 08/18/19 15:08 Dose: 25 mls/hr Infusion: 08/18/19 13:08 Dose: 25 mls/hr Admin: 08/18/19 09:08 Dose: 25 mls/hr Infusion: 08/18/19 06:52 Dose: 25 mls/hr Admin: 08/18/19 02:52 Dose: 25 mls/hr Infusion: 08/18/19 00:34 Dose: 25 mls/hr Admin: 08/17/19 20:34 Dose: 25 mls/hr Sodium Chloride (Normal Saline) 1,000 mls @ 125 mls/hr IV ASDIRECTED [facility] Last Admin: 08/20/19 08:38 Dose: 125 mls/hr Infusion: 08/20/19 08:38 Dose: 125 mls/hr Admin: 08/20/19 01:10 Dose: 125 mls/hr Infusion: 08/20/19 01:10 Dose: 125 mls/hr Admin: 08/19/19 17:22 Dose: 125 mls/hr Infusion: 08/19/19 17:22 Dose: 125 mls/hr Admin: 08/19/19 09:28 Dose: 125 mls/hr Infusion: 08/19/19 08:59 Dose: 125 mls/hr Admin: 08/19/19 00:59 Dose: 125 mls/hr Infusion: 08/19/19 00:59 Dose: 125 mls/hr Admin: 08/18/19 17:01 Dose: 125 mls/hr Infusion: 08/18/19 17:01 Dose: 125 mls/hr Admin: 08/18/19 09:08 Dose: 125 mls/hr Infusion: 08/18/19 09:08 Dose: 125 mls/hr Admin: 08/18/19 01:11 Dose: 125 mls/hr Ketorolac Tromethamine (Toradol) 15 mg IVPUSH Q6H PRN PRN Reason: Pain Last Admin: 08/20/19 05:20 Dose: 15 mg Admin: 08/19/19 17:13 Dose: 15 mg Admin: 08/18/19 23:53 Dose: 15 mg Admin: 08/18/19 17:51 Dose: 15 mg Morphine Sulfate (Morphine) 2 mg IVPUSH Q4H PRN PRN Reason: Pain Last Admin: 08/19/19 20:56 Dose: 2 mg Admin: 08/19/19 12:07 Dose: 2 mg Admin: 08/19/19 06:01 Dose: 2 mg Admin: 08/18/19 15:07 Dose: 2 mg Ondansetron HCl (Zofran) 4 mg IVPUSH Q6H PRN PRN Reason: Nausea/Vomiting Last Admin: 08/19/19 20:56 Dose: 4 mg Admin: 08/19/19 12:07 Dose: 4 mg Admin: 08/19/19 04:23 Dose: 4 mg - Assessment Assessment (Free Text/Narrative):: Feels the best he has ever felt today. Had one episode of emesis last night. Pain is better, still has frequent diarrhea - watery. - Plan Plan (Free Text/Narrative):: - send C.diff sample due to watery diarrhea - Repeat CT a/p with IV contrast only - continue ambulation - continue NPO, IVF, IV abx
[2019-08-20] MEDS ORDERED: Iopamidol 612 MG/ML 100 ML Bottle IVPUSH ONE (09:27)
[2019-08-20] MEDS: Ondansetron 4 MG/2 ML SDV IVPUSH PRN (09:46)
[2019-08-20] MEDS ORDERED: Sodium Chloride 0.9% 10 ML Syringe FLUSH PRN (10:12)
--- NOTE | 2019-08-20 11:06 | CT ---
CT abdomen and pelvis Technique: Multiple axial sections were obtained from above the dome of the diaphragm inferiorly through the pubic symphysis. Intravenous contrast was utilized. No oral contrast has been given. Comparison: Previous CT abdomen and pelvis exam of 08/17/19. Findings: Increasing small bowel dilatation is seen which contains gas and fluid. There are areas of bowel wall thickening being seen within the pelvis as well as fluid within the pelvis. Transition point of the small bowel dilatation is in this area of bowel wall thickening. Appendix not visualized with certainty. Small amount of fluid noted around the liver. Small bilateral pleural effusions are noted with slight adjacent compressive atelectasis. Liver shows no focal abnormality. Spleen appears within normal limits. Kidneys show symmetric contrast enhancement without hydronephrosis or mass. Adrenal glands show no nodule. Pancreas is within normal limits. Aorta shows no aneurysm. No retroperitoneal adenopathy is seen. No discrete pelvic mass or adenopathy is seen. Impression: 1. Dilated small bowel loops with fluid and gas. Dilatation has increased from previous exam. Point of transition is within the distal small bowel within the pelvis in an area of bowel wall thickening and inflammatory change. There is mild increased fluid being seen in this area presumably due to reactive fluid. Etiology for these findings are not appreciated on this exam. 2. Small bilateral pleural effusions with adjacent compressive atelectasis. 3. Small amount of fluid around the liver. Diagnostic code #3
[2019-08-20] MEDS ORDERED: Scopolamine 1.5 MG Transdermal Patch TRDERM PRN (12:18)
[2019-08-20] MEDS: Pantoprazole 40 MG Vial IVPUSH SCH (12:38)
--- NOTE | 2019-08-20 15:43 | PCM.SN ---
- Free Text/Narrative Note: I discussed with the patient and his the CT findings. CT shows persistent inflammation of the distal small bowel. Actually, the colon seems to be normal except, mild secondary inflammation of the sigmoid colon as it courses next to the inflamed bowel. Comparing, Ct 08/[address] 08/20, it seems that the etiology is less likely to be iatrogetic colonic perforation but it could be a Lore's diverticulum or IBD flare up. The patient denies any history of IBD. I discussed this with the patient and his . The patient feels that he improving as pain is better and passed flatus. C.diff was negative. He would like to continue to wait to see if he will improve non-surgically, if nausea continues or pain returns, then we will pursue an operation. -We will switch antibiotics to Cipro/Flagyl.
[2019-08-20] MEDS ORDERED: Ertapenem 1 GM in Sodium Chloride 0.9% 50 ML IV SCH ×2 (16:00→17:30)
[2019-08-20] MEDS: Ertapenem 1 GM in Sodium Chloride 0.9% 50 ML IV SCH (21:26)
[2019-08-21] MEDS: Sodium Chloride 0.9% 1,000 ML IV SCH (01:30)
[2019-08-21] MEDS: Pantoprazole 40 MG Vial IVPUSH SCH (08:46)
--- NOTE | 2019-08-21 08:58 | PCM.SURGPN ---
- General Info Date of Service: 08/21/19 POD#: 5 Admission Diagnosis/Problem: Abdominal pain Functional Status: Reports: Pain Controlled, Ambulating - Review of Systems General: Reports: No Symptoms HEENT: Reports: No Symptoms Pulmonary: Reports: No Symptoms Cardiovascular: Reports: No Symptoms Gastrointestinal: Reports: Abdominal Pain, Decreased Appetite, Diarrhea Genitourinary: Reports: No Symptoms Musculoskeletal: Reports: No Symptoms Skin: Reports: No Symptoms Neurological: Reports: No Symptoms Psychiatric: Reports: No Symptoms - Patient Data Vitals - Most Recent: Last Vital Signs Temp 99.0 F 08/21/19 04:12 Pulse 86 08/21/19 04:12 Resp 12 08/21/19 04:12 BP 122/79 08/21/19 04:12 Pulse Ox 93 L 08/21/19 04:12 Weight - Most Recent: 84.504 kg I&O - Last 24 Hours: Intake & Output 08/20/19 08/21/19 08/21/19 22:59 06:59 14:59 Intake Total 1795 1555 Output Total 410 875 Balance 1385 680 Lab Results Last 24 Hrs: Laboratory Results - last 24 hr 08/20/19 08/21/19 08/21/19 Range/Units 09:30 04:40 04:40 WBC 4.74 (4.23-9.07) K/mm3 RBC 3.84 L (4.63-6.08) M/mm3 Hgb 11.2 L (13.7-17.5) gm/dl Hct 32.7 L (40.1-51.0) % MCV 85.2 (79.0-92.2) fl MCH 29.2 (25.7-32.2) pg MCHC 34.3 (32.2-35.5) g/dl RDW Std Deviation 38.0 (35.1-43.9) fL Plt Count 238 (163-337) K/mm3 MPV 8.4 L (9.4-12.3) fl Neut % (Auto) 71.3 H (34.0-67.9) % Lymph % (Auto) 12.7 L (21.8-53.1) % [place] % (Auto) 11.6 (5.3-12.2) % Eos % (Auto) 3.8 (0.8-7.0) Baso % (Auto) 0.4 (0.1-1.2) % Neut # (Auto) 3.38 (1.78-5.38) K/mm3 Lymph # (Auto) 0.60 L (1.32-3.57) K/mm3 [place] # (Auto) 0.55 (0.30-0.82) K/mm3 Eos # (Auto) 0.18 (0.04-0.54) K/mm3 Baso # (Auto) 0.02 (0.01-0.08) K/mm3 Sodium 143 (136-145) mEq/L Potassium 3.5 (3.5-5.1) mEq/L Chloride 110 H (98-107) mEq/L Carbon Dioxide 21 (21-32) mEq/L Anion Gap 15.5 H (5-15) BUN 14 (7-18) mg/dL Creatinine 1.0 (0.7-1.3) mg/dL Est Cr Clr Drug Dosing 96.59 mL/min Estimated GFR (MDRD) > 60 (>60) mL/min BUN/Creatinine Ratio 14.0 (14-18) Glucose 91 (74-106) mg/dL Calcium 8.0 L (8.5-10.1) mg/dL C.difficile [id number] Presumptive negative C. difficile Tox (PCR) Negative Med Orders - Current: Current Medications Al Hydroxide/Mg Hydroxide (Mag-Al Plus) 30 ml PO Q4H PRN PRN Reason: Heartburn Last Admin: 08/19/19 18:15 Dose: 30 ml Ertapenem 1 gm/ Sodium (Chloride) 50 mls @ 100 mls/hr IV Q24H [facility] Last Admin: 08/20/19 21:26 Dose: 100 mls/hr Potassium Chloride/Dextrose/Sod Cl (D5 1/2 Ns W/ 20 Meq/L Kcl) 1,000 mls @ 100 mls/hr IV ASDIRECTED [facility] Ketorolac Tromethamine (Toradol) 15 mg IVPUSH Q6H PRN PRN Reason: Pain Last Admin: 08/20/19 21:44 Dose: 15 mg Morphine Sulfate (Morphine) 2 mg IVPUSH Q4H PRN PRN Reason: Pain Last Admin: 08/19/19 20:56 Dose: 2 mg Ondansetron HCl (Zofran) 4 mg IVPUSH Q6H PRN PRN Reason: Nausea/Vomiting Last Admin: 08/20/19 09:46 Dose: 4 mg Pantoprazole Sodium (Protonix Iv) 40 mg IVPUSH DAILY [facility] Last Admin: 08/21/19 08:46 Dose: 40 mg Scopolamine (Transderm-Scop) 1.5 mg TRDERM Q72H PRN PRN Reason: Nausea/Vomiting Last Admin: 08/20/19 12:37 Dose: 1.5 mg Sodium Chloride (Saline Flush) 10 ml FLUSH ONETIME PRN PRN Reason: Keep Vein Open Last Admin: 08/20/19 10:27 Dose: 10 ml Discontinued Medications Diatrizoate Meglum/Diatrizoate Sod (Gastrografin 37%) 90 ml PO ONETIME ONE Stop: 08/17/19 12:53 Last Admin: 08/17/19 13:23 Dose: 90 ml Hydromorphone HCl (Dilaudid) 1 mg IVPUSH ONETIME ONE Stop: 08/17/19 11:39 Last Admin: 08/17/19 11:55 Dose: 1 mg Hydromorphone HCl (Dilaudid) 1 mg IVPUSH ONETIME ONE Stop: 08/17/19 12:27 Last Admin: 08/17/19 12:35 Dose: 1 mg Hydromorphone HCl (Dilaudid) 0.5 mg IVPUSH ONETIME ONE Stop: 08/17/19 14:34 Last Admin: 08/17/19 14:58 Dose: 0.5 mg Hydromorphone HCl (Dilaudid) 0.5 mg IVPUSH Q2H PRN PRN Reason: Pain Last Admin: 08/18/19 11:04 Dose: 0.5 mg Sodium Chloride (Normal Saline) 1,000 mls @ 999 mls/hr IV ONETIME ONE Stop: 08/17/19 12:34 Last Admin: 08/17/19 11:55 Dose: 999 mls/hr Piperacillin Sod/Tazobactam (Sod 4.5 gm/ Sodium Chloride) 100 mls @ 200 mls/hr IV Q8H [facility] Last Admin: 08/17/19 15:00 Dose: 25 mls/hr Piperacillin Sod/Tazobactam (Sod 4.5 gm/ Sodium Chloride) 100 mls @ 25 mls/hr IV Q6H [facility] Last Admin: 08/20/19 14:21 Dose: 25 mls/hr Sodium Chloride (Normal Saline) 1,000 mls @ 100 mls/hr IV ASDIRECTED [facility] Last Admin: 08/17/19 17:31 Dose: 100 mls/hr Sodium Chloride (Normal Saline) 1,000 mls @ 125 mls/hr IV ASDIRECTED [facility] Last Admin: 08/21/19 01:30 Dose: 125 mls/hr Ertapenem 1 gm/ Sodium (Chloride) 50 mls @ 100 mls/hr IV Q24H [facility] Last Admin: 08/20/19 17:54 Dose: Not Given Ertapenem 1 gm/ Sodium (Chloride) 50 mls @ 100 mls/hr IV Q24H [facility] Iopamidol (Isovue-300 (61%)) 100 ml IVPUSH ONETIME ONE Stop: 08/17/19 12:53 Last Admin: 08/17/19 13:23 Dose: 100 ml Iopamidol (Isovue-300 (61%)) 100 ml IVPUSH ONETIME ONE Stop: 08/20/19 09:28 Last Admin: 08/20/19 10:27 Dose: 100 ml Ondansetron HCl (Zofran) 4 mg IVPUSH ONETIME ONE Stop: 08/17/19 11:35 Last Admin: 08/17/19 11:55 Dose: 4 mg Sodium Chloride (Saline Flush) 10 ml FLUSH ONETIME ONE Stop: 08/17/19 12:53 Last Admin: 08/17/19 13:23 Dose: 10 ml - Exam General: Alert, Oriented, Cooperative, No Acute Distress Lungs: Clear to Auscultation Cardiovascular: Regular Rate, Regular Rhythm GI/Abdominal Exam: Soft, Non-Tender, Distended (mildly) Extremities: Normal Inspection - Problem List Review Problem List Initiated/Reviewed/Updated: No - My Orders Last 24 Hours: Active Orders 24 hr Category Date Time Status Clear Liquid Diet [DIET] Diet 08/21/19 Breakfast Active D5 1/2 NS w/ 20 mEq/L KCl 1,000 ml Med 08/21/19 08:45 Active IV ASDIRECTED Ertapenem [INVanz] 1 gm Med 08/20/19 21:00 Active Sodium Chloride 0.9% [Normal Saline] 50 ml IV Q24H Pantoprazole [ProTONIX IV] Med 08/20/19 12:30 Active 40 mg IVPUSH DAILY Scopolamine [Transderm-Scop] Med 08/20/19 12:18 Active 1.5 mg TRDERM Q72H PRN Sodium Chloride 0.9% [Saline Flush] Med 08/20/19 10:12 Active 10 ml FLUSH ONETIME PRN Medication Orders Al Hydroxide/Mg Hydroxide (Mag-Al Plus) 30 ml PO Q4H PRN PRN Reason: Heartburn Last Admin: 08/19/19 18:15 Dose: 30 ml Ertapenem 1 gm/ Sodium (Chloride) 50 mls @ 100 mls/hr IV Q24H [facility] Last Admin: 08/20/19 21:26 Dose: 100 mls/hr Potassium Chloride/Dextrose/Sod Cl (D5 1/2 Ns W/ 20 Meq/L Kcl) 1,000 mls @ 100 mls/hr IV ASDIRECTED [facility] Ketorolac Tromethamine (Toradol) 15 mg IVPUSH Q6H PRN PRN Reason: Pain Last Admin: 08/20/19 21:44 Dose: 15 mg Admin: 08/20/19 05:20 Dose: 15 mg Admin: 08/19/19 17:13 Dose: 15 mg Admin: 08/18/19 23:53 Dose: 15 mg Admin: 08/18/19 17:51 Dose: 15 mg Morphine Sulfate (Morphine) 2 mg IVPUSH Q4H PRN PRN Reason: Pain Last Admin: 08/19/19 20:56 Dose: 2 mg Admin: 08/19/19 12:07 Dose: 2 mg Admin: 08/19/19 06:01 Dose: 2 mg Admin: 08/18/19 15:07 Dose: 2 mg Ondansetron HCl (Zofran) 4 mg IVPUSH Q6H PRN PRN Reason: Nausea/Vomiting Last Admin: 08/20/19 09:46 Dose: 4 mg Admin: 08/19/19 20:56 Dose: 4 mg Admin: 08/19/19 12:07 Dose: 4 mg Admin: 08/19/19 04:23 Dose: 4 mg Pantoprazole Sodium (Protonix Iv) 40 mg IVPUSH DAILY [facility] Last Admin: 08/21/19 08:46 Dose: 40 mg Admin: 08/20/19 12:38 Dose: 40 mg Scopolamine (Transderm-Scop) 1.5 mg TRDERM Q72H PRN PRN Reason: Nausea/Vomiting Last Admin: 08/20/19 12:37 Dose: 1.5 mg Sodium Chloride (Saline Flush) 10 ml FLUSH ONETIME PRN PRN Reason: Keep Vein Open Last Admin: 08/20/19 10:27 Dose: 10 ml - Assessment Assessment (Free Text/Narrative):: Patient has inflammation of small bowel causing partial SBO. Patient is improving clinically - Plan Plan (Free Text/Narrative):: - Passing flatus, has BMs, abd soft, NT, mildly distended. - Will start CLD today and go slow - continue ABx, IVF, ambulation
[2019-08-21] MEDS: D5 1/2 NS w/ 20 mEq/L KCl 1,000 ML IV SCH ×2 (09:57→19:36)
[2019-08-21] MEDS: Aluminum Hydroxide/Magnesium Hydroxide/Simethicone Susp 30 ML Cup PO PRN (18:01)
[2019-08-21] MEDS: Ertapenem 1 GM in Sodium Chloride 0.9% 50 ML IV SCH (20:48)
[2019-08-22] MEDS: D5 1/2 NS w/ 20 mEq/L KCl 1,000 ML IV SCH ×2 (05:56→16:34)
[2019-08-22] MEDS: Pantoprazole 40 MG Vial IVPUSH SCH (09:07)
--- NOTE | 2019-08-22 17:32 | PCM.DCSUM1 ---
Discharge Summary - Hospital Course Free Text/Narrative:: The patient had a colonoscopy on 08/16 for hematochezia and chronic diarrhea. on 08/17 he developed acute onset of abdominal pain. In the ED WBC was 14, CT a/ p revealed inflamed distal small bowel next to the sigmoid colon and a few small specs of extraluminal air. This was thought to be related to iatrogenic colonic perforation from colonoscopy so the patient was admitted, placed on IV antibiotics. His WBC improved on 08/18 to 9 and his pain subsequently resolved. By 08/19 the pain was much better but the patient developed nausea, emesis and diarrhea. Repeat CT a/p on 08/20 revealed signs of SBO with transition point at the area of distal small bowel inflammation, No other significant abnormalities. C.diff was negative on 08/20. The patient was continued on conservative management but showed minimal improvement. By 08/22 he was tolerating minimal amount of clears but emesis had resolved. Due to slow recovery and diagnostic uncertainly, the patient was offered operative exploration. The patient wanted a second opinion and preferred transfer to [facility]. Diagnosis: Stroke: No - Discharge Data Discharge Date: 08/22/19 Discharge Disposition: DC/Tfer to Acute Hospital 02 Condition: Good - Referral to Home Health Primary Care Physician: Dell Washington Jr, MD - Patient Instructions Diet: Clear Liquid Diet Activity: As Tolerated Driving: May Drive Today Showering/Bathing: May Shower - Discharge Plan *PRESCRIPTION DRUG MONITORING PROGRAM REVIEWED*: Not Applicable *COPY OF PRESCRIPTION DRUG MONITORING REPORT IN PATIENT SHILPI: Not Applicable Home Medications: Home Meds . [No Known Home Meds] 08/17/19 [History] Oxygen Therapy Mode: Room Air Patient Handouts: Sepsis, Adult Forms: ED Department Discharge Referrals: Dell Washington Jr, MD [Primary Care Provider] - - Discharge Summary/Plan Comment DC Time >30 min.: Yes (to inpatient facility) - General Info Date of Service: 08/22/19 Functional Status: Reports: Pain Controlled, Ambulating - Review of Systems General: Reports: No Symptoms HEENT: Reports: No Symptoms Pulmonary: Reports: No Symptoms Cardiovascular: Reports: No Symptoms Gastrointestinal: Reports: Diarrhea, Nausea Genitourinary: Reports: No Symptoms Musculoskeletal: Reports: No Symptoms Skin: Reports: No Symptoms Neurological: Reports: No Symptoms Psychiatric: Reports: No Symptoms - Patient Data Vitals - Most Recent: Last Vital Signs Temp 97.9 F 08/22/19 12:45 Pulse 67 08/22/19 12:45 Resp 24 H 08/22/19 12:45 BP 126/89 08/22/19 12:45 Pulse Ox 98 08/22/19 12:45 Weight - Most Recent: 84.867 kg I&O - Last 24 hours: Intake & Output 08/22/19 08/22/19 08/22/19 06:59 14:59 22:59 Intake Total 1248 300 Balance 1248 300 Med Orders - Current: Current Medications Al Hydroxide/Mg Hydroxide (Mag-Al Plus) 30 ml PO Q4H PRN PRN Reason: Heartburn Last Admin: 08/21/19 18:01 Dose: 30 ml Ertapenem 1 gm/ Sodium (Chloride) 50 mls @ 100 mls/hr IV Q24H [facility] Last Admin: 08/21/19 20:48 Dose: 100 mls/hr Potassium Chloride/Dextrose/Sod Cl (D5 1/2 Ns W/ 20 Meq/L Kcl) 1,000 mls @ 100 mls/hr IV ASDIRECTED [facility] Last Admin: 08/22/19 16:34 Dose: 100 mls/hr Ketorolac Tromethamine (Toradol) 15 mg IVPUSH Q6H PRN PRN Reason: Pain Last Admin: 08/20/19 21:44 Dose: 15 mg Miscellaneous Information (Remove Patch) 1 ea TRDERM Q72H [facility] Morphine Sulfate (Morphine) 2 mg IVPUSH Q4H PRN PRN Reason: Pain Last Admin: 08/19/19 20:56 Dose: 2 mg Ondansetron HCl (Zofran) 4 mg IVPUSH Q6H PRN PRN Reason: Nausea/Vomiting Last Admin: 08/20/19 09:46 Dose: 4 mg Pantoprazole Sodium (Protonix Iv) 40 mg IVPUSH DAILY [facility] Last Admin: 08/22/19 09:07 Dose: 40 mg Scopolamine (Transderm-Scop) 1.5 mg TRDERM Q72H PRN PRN Reason: Nausea/Vomiting Last Admin: 08/20/19 12:37 Dose: 1.5 mg Sodium Chloride (Saline Flush) 10 ml FLUSH ONETIME PRN PRN Reason: Keep Vein Open Last Admin: 08/20/19 10:27 Dose: 10 ml Discontinued Medications Diatrizoate Meglum/Diatrizoate Sod (Gastrografin 37%) 90 ml PO ONETIME ONE Stop: 08/17/19 12:53 Last Admin: 08/17/19 13:23 Dose: 90 ml Hydromorphone HCl (Dilaudid) 1 mg IVPUSH ONETIME ONE Stop: 08/17/19 11:39 Last Admin: 08/17/19 11:55 Dose: 1 mg Hydromorphone HCl (Dilaudid) 1 mg IVPUSH ONETIME ONE Stop: 08/17/19 12:27 Last Admin: 08/17/19 12:35 Dose: 1 mg Hydromorphone HCl (Dilaudid) 0.5 mg IVPUSH ONETIME ONE Stop: 08/17/19 14:34 Last Admin: 08/17/19 14:58 Dose: 0.5 mg Hydromorphone HCl (Dilaudid) 0.5 mg IVPUSH Q2H PRN PRN Reason: Pain Last Admin: 08/18/19 11:04 Dose: 0.5 mg Sodium Chloride (Normal Saline) 1,000 mls @ 999 mls/hr IV ONETIME ONE Stop: 08/17/19 12:34 Last Admin: 08/17/19 11:55 Dose: 999 mls/hr Piperacillin Sod/Tazobactam (Sod 4.5 gm/ Sodium Chloride) 100 mls @ 200 mls/hr IV Q8H [facility] Last Admin: 08/17/19 15:00 Dose: 25 mls/hr Piperacillin Sod/Tazobactam (Sod 4.5 gm/ Sodium Chloride) 100 mls @ 25 mls/hr IV Q6H [facility] Last Admin: 08/20/19 14:21 Dose: 25 mls/hr Sodium Chloride (Normal Saline) 1,000 mls @ 100 mls/hr IV ASDIRECTED [facility] Last Admin: 08/17/19 17:31 Dose: 100 mls/hr Sodium Chloride (Normal Saline) 1,000 mls @ 125 mls/hr IV ASDIRECTED [facility] Last Admin: 08/21/19 01:30 Dose: 125 mls/hr Ertapenem 1 gm/ Sodium (Chloride) 50 mls @ 100 mls/hr IV Q24H [facility] Last Admin: 08/20/19 17:54 Dose: Not Given Ertapenem 1 gm/ Sodium (Chloride) 50 mls @ 100 mls/hr IV Q24H [facility] Iopamidol (Isovue-300 (61%)) 100 ml IVPUSH ONETIME ONE Stop: 08/17/19 12:53 Last Admin: 08/17/19 13:23 Dose: 100 ml Iopamidol (Isovue-300 (61%)) 100 ml IVPUSH ONETIME ONE Stop: 08/20/19 09:28 Last Admin: 08/20/19 10:27 Dose: 100 ml Ondansetron HCl (Zofran) 4 mg IVPUSH ONETIME ONE Stop: 08/17/19 11:35 Last Admin: 08/17/19 11:55 Dose: 4 mg Sodium Chloride (Saline Flush) 10 ml FLUSH ONETIME ONE Stop: 08/17/19 12:53 Last Admin: 08/17/19 13:23 Dose: 10 ml - Exam General: Reports: Alert, Oriented, Cooperative, No Acute Distress HEENT: Reports: Pupils Equal, Pupils Reactive Lungs: Reports: Clear to Auscultation, Normal Respiratory Effort GI/Abdominal Exam: Soft, Non-Tender, Distended (Male) Exam: No Hernia
== END 2019-08-22 18:27 | DRG 393 ==
LOC: JD.ED 11:10 → JD.MS 15:03
PROVIDERS: ADMIT Surgery; ATTEND Surgery
DX: K91.89 Other postprocedural complications and disorders of digestive system (principal); K63.1 Perforation of intestine (nontraumatic); K56.609 Unspecified intestinal obstruction, unspecified as to partial versus complete obstruction; K52.9 Noninfective gastroenteritis and colitis, unspecified; Z98.890 Other specified postprocedural states
CPT/HCPCS: 36415; 74177; 74177-26; 80048; 80053; 81001; 85007; 85025; 85027; 87493; 94762; 96361; 96365; 96375; 96376; 99285; 99285-25; A9270-GY; C9113; J1170; J1335; J1885; J2270; J2405; J2543; J3480; J7030; J7040; J7050; Q9963; Q9967